=== PATIENT | male | born 1985 | race Caucasian/White ===

== ENCOUNTER 2018-06-21 21:24 | Outpatient (REF) | payer MEDICAID, SELFPAY ==
[2018-06-21 22:18] LABS: HCT 45.8 % (40.0-50.0); HGB 16.2 g/dL (13.5-17.5); Mean Corp. HGB Concentration 35.4 g/dL (32.0-36.0); Mean Corpuscular Hemoglobin 28.7 pg (27.0-33.0); Mean Corpuscular Volume 81.1 fL (80-95); Mean Platelet Volume 12.3 fL (8.0-11.0); Platelet Count 188 x1000/uL (130-400); RBC 5.65 m/cumm (4.50-6.00); RBC Distribution Width 13.3 % (11.8-14.1); White Blood Cell Count 5.85 k/cumm (4.4-10.8)
[2018-06-21 22:28] LABS: ALT 288 U/L (12-78); AST 94 U/L (15-37); Albumin 4.3 g/dL (3.4-5.0); Alkaline Phosphatase 81 U/L (46-116); BUN 16 mg/dL (7-18); Bilirubin, Total 0.5 mg/dL (0.2-1.0); CREATININE 0.86 mg/dL (0.70-1.30); Chloride 103 mmol/L (98-107); Glucose 86 mg/dL (70-100); Potassium 4.3 mmol/L (3.5-5.1); Sodium 140 mmol/L (136-145); Total Protein 7.7 g/dL (6.4-8.2)
[2018-06-24 09:48] LABS: Hepatitis B Surface Ag Negative (NEGAT)
[2018-06-24 09:51] LABS: HBs Antibody, Quant 473.2 mIU/mL; Hepatitis B Surface Ab Positive
[2018-06-24 10:02] LABS: Hepatitis C Ab w Rflx HCV PCR Reactive (NEGAT)
[2018-06-24 10:03] LABS: HIV-1/2 Ag & Ab Screen Negative (NEGAT)
== END 2018-06-21 21:44 ==
LOC: NCHCN 21:24
PROVIDERS: PCP Family Medicine; Visit Provider Internal Medicine
DX: C32.9 Malignant neoplasm of larynx, unspecified (principal); K21.9 Gastro-esophageal reflux disease without esophagitis; K52.9 Noninfective gastroenteritis and colitis, unspecified; Z87.898 Personal history of other specified conditions; Z11.59 Encounter for screening for other viral diseases; Z11.4 Encounter for screening for human immunodeficiency virus [HIV]
CPT/HCPCS: 80053; 85027; 86706; 86803; 87340; 87389; 87522

== ENCOUNTER 2018-07-15 01:03 | Outpatient (CLI) | payer SELFPAY ==
--- NOTE | 2018-07-15 08:00 | DI.US_ITS ---
SYMPTOMS/DIAGNOSIS: HEPATITIS C, B19.20, ABNORMAL LFTS ABDOMINAL ULTRASOUND: The visualized liver parenchyma is normal in appearance. No focal lesion identified. No biliary dilatation seen. No evidence of cholelithiasis. The pancreas is not well seen. Spleen is grossly unremarkable in appearance. Aorta and IVC are of normal diameter. Kidneys appear intact. CONCLUSION: Negative abdominal ultrasound.
== END 2018-07-15 01:23 ==
PROVIDERS: PCP Family Medicine; Visit Provider Internal Medicine
DX: B19.20 Unspecified viral hepatitis C without hepatic coma (principal); R74.8 Abnormal levels of other serum enzymes
CPT/HCPCS: 76700

== ENCOUNTER 2018-09-16 09:13 | Emergency (ER) | payer BC, SELFPAY ==
[2018-09-16 09:17] VITALS: BP 145/95; PULSE 79; RESP 20; TEMP 36.8; O2SAT 97
[2018-09-16 09:20] VITALS: RESP 24
--- NOTE | 2018-09-16 09:34 | W.ED.GENAD ---
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 He presents with worsening stridor for the last 3 days. No shortness of breath in the chest, just a sensation secondary to his upper respiratory symptoms. No chest pain, no chest heaviness or chest tightness. No history of PE. Exam demonstrates an otherwise well-appearing male that is in no acute respiratory distress. He does have minimal stridor on exam, which appears to all be referred in upper respiratory. Lung sounds otherwise clear. We will give Decadron, racemic epinephrine inhaled. We will get a CT scan of the neck to evaluate for further worsening of his tracheal space. We will refer to [facility] after results and reevaluation. 10:39 AM The patient has notable improvement of his symptoms with ischemic epinephrine. CT scan results have returned and suggests recurrent mass or scarring of the glottis up to 2 cm above the glottis with findings highly cyst suggestive of significant airway compromise. Currently the patient is maintaining an intact airway, he has his stridor, but feels much better after the racemic epinephrine. We did discuss with him the risks and benefits of intubation prior to transfer and the patient would like to hold off on intubation understanding the risks and benefits of the current procedure. Currently he appears stable and in no acute respiratory distress. I did contact [facility] and discussed the case with Dr. Sandy and Dr. Cody, they agree with the plan. Patient will be transferred for emergent ENT evaluation in the ED. I have extensively reviewed the treatment plan with the patient. I have addressed all patient concerns at this time. I have also discussed the plan with the admitting physician and they agree with the current assessment and plan and have agreed to assume responsibility for the patient. All parties demonstrate verbal understanding and agreement with our assessment and plan at this time. At time of transfer the patient was reassessed and continued to demonstrate current medical stability. No signs of acute respiratory distress requiring intubation, hemodynamic instability requiring pressor support, or rapidly declining mental status. The patient is stable for transport. NECK CT: CT examination of the cervical region was performed with intravenous infusion of 100 cc's of Omnipaque 350. The patient reportedly has a history of laryngeal carcinoma and scar revision procedure. Images obtained through the lung apices show no significant abnormality. Superior mediastinal structures appear intact. No bulky adenopathy identified in the cervical region. The orbital and temporal bone structures appear intact and paranasal sinuses and mastoid air cells are well aerated. There may be slight decrease in the width of the airway at the level of the palatine tonsils without evidence of a discrete mass. The epiglottis and aryepiglottic folds appear intact. There is marked narrowing of the airway at the level of the vocal cords and superior to the cords by about 2 cm. Previous surgical procedure noted at this site with presumed post surgical deformity of the laryngeal cartilages. Trachea appears of normal diameter. CONCLUSION: Findings suggesting recurrent mass and/or scarring at the glottis and up to approximately 2 cm. above the glottis with findings highly suggestive of significant airway compromise. Please correlate clinically. The findings were discussed with Dr Alston in the ER on the date of the examination. HPI General Date/Time Provider Initiated Documentation: 09/16/18 09:15. HPI Narrative: This is a 33-year-old male with a past medical history of laryngeal cancer, with surgical excision in August 2017, and tracheostomy at that time, and then revision for scar tissue in June 2018 at [facility]. He presents today with worsening shortness of breath over the last 3 days. He states that he has chronic stridor, but over the last 3 to 4 days he has noticed progressive worsening, he states that whenever he is in the shower he feels like he cannot breathe and is choking, and notably feels like he is having a hard time breathing in his throat when he wakes up in the morning. He denies any symptoms of shortness shortness of breath in the chest, chest pain, cough, hemoptysis, vomiting or diarrhea. He denies any fever or chills. He states that his next follow-up appointment at [facility] is on the of this month, he did call earlier today they had no specific recommendations. He denies any other complaints at this time. He denies any difficulty controlling secretions, syncope, history of blood clots. Patient also states that he has had symptoms identical to this in the past, especially when he had his worsening scarring requiring surgical management. Related Data Home Medications Medication Instructions Recorded Confirmed lansoprazole [Prevacid] 30 mg PO DAILY tab-cap 07/19/15 09/16/18 Allergies Allergy/AdvReac Type Severity Reaction Status Date / Time bupropion HCl Allergy Mild Hives Unverified 09/16/18 09:20 [From Wellbutrin] shellfish derived Allergy Mild Hives Unverified 09/16/18 09:20 General Stated Complaint: SOB REHAN: 3 Review of Systems Review of Systems All systems reviewed & are unremarkable except as noted in HPI and below PFSH Medical History ADHD Chronic pain Depression Dyspepsia GERD (gastroesophageal reflux disease) Heavy alcohol use History of depression PTSD (post-traumatic stress disorder) Polysubstance abuse Rectal bleeding Suicide attempt Surgical History R corneal transplant forearm fracture right knee surgery x3 Family History Mother Achalasia Father Essential hypertension Other Hypertension Social History Smoking/Tobacco Use Status: Current every day Alcohol Intake: current Alcohol Intake frequency: 0-2 drinks per day Drug use: Current Sobriety Substance use type: marijuana Do you feel safe at home: Yes Do you feel safe in your relationship?: Yes Exam Narrative Exam Narrative: 1.Const: Well-nourished, Well-developed, appearing stated age 2.Eyes: PERRL, no conjunctival injection, and symmetrical lids. 3.ENT: Atraumatic external nose and ears. Moist MM. Neck: Symmetric, trachea midline, No thyromegaly. Notable scarring and tracheal midline from previous tracheostomy. Notable inspiratory and expiratory stridor. Able to control secretions well. No signs of respiratory distress. No mass. Posterior oropharynx demonstrates no swelling, erythema or edema. No evidence of angioedema. 4.CVS: +S1/S2, No murmurs or gallops. Peripheral pulses 2+ and equal in all extremities. Brisk capillary refill in all extremities. 5.RESP: Unlabored respiratory effort. Referred upper respiratory stridor, notable over the tracheal scar. No referred abnormal lower lower breath sounds. No wheezes or rhonchi. 6.GI: Soft, Nontender/Nondistended, No hepatosplenomegaly. No guarding or rebound. 7.MSK: Normocephalic/Atraumatic, Extremities w/o deformity or ttp No cyanosis or clubbing, Normal movement of all extremities 8.Skin: Warm, Dry. No rashes or lesions. 9.Neuro: plan consultant II-XII grossly intact. Sensation grossly intact, no focal neurologic deficits. 10.Psych: (AAO) x3. Appropriate mood and affect Course Vital Signs Temperature 36.8 C 09/16/18 09:17 Pulse 79 09/16/18 09:17 Respiratory Rate 20 09/16/18 09:17 Blood Pressure 145/95 H 09/16/18 09:17 Pulse Oximetry 97 09/16/18 09:17 Temperature 36.8 C 09/16/18 09:17 Temperature Source Temporal Artery Scan 09/16/18 09:17 Pulse 79 09/16/18 09:17 Respiratory Rate 24 09/16/18 09:20 Respiratory Effort 09/16/18 09:20 Respiratory Pattern Tachypnea 09/16/18 09:20 Blood Pressure 145/95 H 09/16/18 09:17 Pulse Oximetry 97 09/16/18 09:17 Oxygen Delivery Method Room Air 09/16/18 09:17 Oxygen Flow Rate 0 09/16/18 09:17 Pain Level 0 09/16/18 09:17
[2018-09-16] MEDS: Normal Saline Flush 10 ML SYR IVP (09:50)
[2018-09-16] MEDS: Omnipaque 350 MG/ML 100 ML BTL IJ (09:50)
--- NOTE | 2018-09-16 09:51 | DI.CT_ITS ---
SYMPTOM/DIAGNOSIS: KNOWN TRACHEAL CA, DIFFICULTY BREATHING, STRIDORUS NECK CT: CT examination of the cervical region was performed with intravenous infusion of 100 cc's of Omnipaque 350. The patient reportedly has a history of laryngeal carcinoma and scar revision procedure. Images obtained through the lung apices show no significant abnormality. Superior mediastinal structures appear intact. No bulky adenopathy identified in the cervical region. The orbital and temporal bone structures appear intact and paranasal sinuses and mastoid air cells are well aerated. There may be slight decrease in the width of the airway at the level of the palatine tonsils without evidence of a discrete mass. The epiglottis and aryepiglottic folds appear intact. There is marked narrowing of the airway at the level of the vocal cords and superior to the cords by about 2 cm. Previous surgical procedure noted at this site with presumed post surgical deformity of the laryngeal cartilages. Trachea appears of normal diameter. CONCLUSION: Findings suggesting recurrent mass and/or scarring at the glottis and up to approximately 2 cm. above the glottis with findings highly suggestive of significant airway compromise. Please correlate clinically. The findings were discussed with Dr Alston in the ER on the date of the examination.
[2018-09-16 09:54] LABS: Abs Immature Grans 0.02 k/cumm (0.0-0.09); Absolute Basophil Count 0.02 k/cumm (0.0-0.2); Absolute Eosinophil Count 0.15 k/cumm (0.0-0.7); Absolute Monocyte Count 0.63 k/cumm (0.11-0.7); Absolute Neutrophil Count 3.65 k/cumm (1.2-6.7); Basophils % 0.3; Eosinophils % 2.5; HCT 47.8 % (40.0-50.0); HGB 16.8 g/dL (13.5-17.5); Immature Grans % 0.3; Lymphocytes % 26.4; Mean Corp. HGB Concentration 35.1 g/dL (32.0-36.0); Mean Corpuscular Volume 82.4 fL (80-95); Mean Platelet Volume 10.7 fL (8.0-11.0); Monocytes % 10.4; Neutrophils % 60.1; Platelet Count 176 x1000/uL (130-400); RBC Distribution Width 13.6 % (11.8-14.1); White Blood Cell Count 6.07 k/cumm (4.4-10.8)
[2018-09-16] MEDS: Dexamethasone 10 MG/ML VIAL IVP (09:58)
[2018-09-16] MEDS: EPINEPHrine for Inhalation 0.5 ML VIAL UPD (09:58)
[2018-09-16 10:04] LABS: ALT 213 U/L (12-78); AST 62 U/L (15-37); Alkaline Phosphatase 69 U/L (46-116); Anion Gap 9.3 mmol/L (3-11); BUN 13 mg/dL (7-18); Bilirubin, Total 0.6 mg/dL (0.2-1.0); CO2 26.7 mmol/L (21.0-32.0); CREATININE 0.83 mg/dL (0.70-1.30); Calcium 8.6 mg/dL (8.5-10.1); Chloride 104 mmol/L (98-107); Glucose 101 mg/dL (70-100); Potassium 4.1 mmol/L (3.5-5.1); Sodium 140 mmol/L (136-145); Total Protein 7.7 g/dL (6.4-8.2)
[2018-09-16 13:10] VITALS: BP 145/95; PULSE 84; RESP 20; TEMP 36.8; O2SAT 98
== END 2018-09-16 11:00 | disposition short-term general hospital (02) ==
PROVIDERS: Emergency Provider Student in an Organized Health Care Education/Training Program; PCP Family Medicine
DX: R19.06 Epigastric swelling, mass or lump (principal); R06.1 Stridor
CPT/HCPCS: 36415; 70491; 80053; 96374; 99285; 85025; 99284; J1100; J3490

== ENCOUNTER 2018-09-23 15:59 | Emergency (ER) | payer BC, SELFPAY ==
[2018-09-23] VITALS (13 sets, daily range): BP systolic 128–148; BP diastolic 71–93; PULSE 84–100; RESP 13–26; TEMP 36.4; O2SAT 94–97
--- NOTE | 2018-09-23 16:16 | DI.CT_ITS ---
SYMPTOM/DIAGNOSIS: LEFT SIDED PLEURITIC CHEST PAIN, RECENT SURGERY PE CTA: CT angiography was performed with multi slice acquisition and multi planar and 3D reconstruction. The study was conducted according to the usual protocol with intravenous administration of 86 cc Omnipaque 350. There is no evidence of pulmonary embolic disease. There is no pulmonary infiltrate. There is no pleural effusion. The heart is not enlarged . There is no evidence of a pericardial effusion. There is no evidence of an aortic aneurysm. SUMMARY: No evidence of pulmonary embolic disease.
--- NOTE | 2018-09-23 16:18 | W.ED.GENAD ---
Discharge Plan Disposition Patient Disposition: HOME Condition: Stable Discharge Details Chief Complaint: GenMedical Clinical Impression: Chest pain, pleuritic Primary Care Provider: Marsha Alfonso ED Provider: Chava Kendall Home Meds and New Rx's Prescriptions: No Action lansoprazole [Prevacid] 30 MG capsule,delayed release(DR/EC) 30 mg PO DAILY RF: 0 Discharge Instructions Instructions: Chest Pain (ED) Additional Instructions: Your blood work and cat scan of your chest did not show any concerning findings you can take 1000mg tylenol and 600mg ibuprofen every 6 hours for pain as needed if pain significantly worsens or you have new symptoms such as high fevers return to the emergency department follow up with your primary care provider within a week Medical Decision Making 33 yo male with hx of laryngeal ca tx'd with surgery in August and had repeat surgery last week to remove residual scar tissue per pt, comes in with pleuritic left sided chest pain for 3 days. Denies increased pain with exertion, radiation of pain, n/v or diaphoresis so doubt acs and heart score is 1 based on smoking hx, will obtain ecg and troponin and if negative feel he can be d/c'd with outpatient f/u with regards to acs w/u. His wells score is moderate given CA hx and also recent surgery, will obtain CTA to eval for PE and less likely pna and ptx (lungs clear on exam). no tearing back pain and normal vascular exam so doubt dissection. No recent trauma so doubt fx/contusion pt states now that he has had some left forearm swelling [place] [facility] [place]. on anterior mid forearm has 2x3 cm localized swelling without erythema, warmth or other evidence of cellulitis or infection, suspect local reaction or infiltrate from the iv, less likely dvt given localizes area and no diffuse arm swelling and normal pulses on exam. [place] [facility] [place] he had direct laryngoscopy and tissue debulking last week without problems, no other interventions at that time. labs and imaging unremarkable, remains stable. Given normal imagine and reassuring labs will d/c home,a dvised f/u with pcp, return precautions also given Differential Diagnosis pleuritis, ptx, pe Medical Records Medical records reviewed: Yes I reviewed the patient's medical records. Imaging Data Radiologic Study: Attestation: I personally reviewed and interpreted this imaging study as follows: Imaging: CT Scan Radiologist's impression: no acute findings Lab Data Lab results reviewed: Yes I reviewed the patient's lab results. ECG Data Attestation: I personally reviewed and interpreted this ECG (s) as follows: Prior ECG tracings: not available for review Interpretation: sinus rhythm, rate of 80, pr 160, no acute st t wave ischemic changes HPI General Mode of arrival: ambulatory. Date/Time Provider Initiated Documentation: 09/23/18 16:11. Limitations to Documentation: no limitations. Information obtained by: patient. History of Present Illness 33 year old M presents to the emergency department with the chief complaint of left sided pleuritic chest pain, described as moderate, Quality is described as stabbing and aching, and is localized to the chest and left. Patient started experiencing this hour(s) (3) and it has been constant. No relieving factors improve symptom(s), Other factors that worsen symptoms (deep breaths) . Related Data Home Medications Medication Instructions Recorded Confirmed lansoprazole [Prevacid] 30 mg PO DAILY tab-cap 07/19/15 09/23/18 Allergies Allergy/AdvReac Type Severity Reaction Status Date / Time bupropion HCl Allergy Mild Hives Unverified 09/23/18 16:44 [From Wellbutrin] shellfish derived Allergy Mild Hives Unverified 09/23/18 16:44 General Stated Complaint: GenMedical REHAN: 3 Review of Systems Review of Systems All systems reviewed & are unremarkable except as noted in HPI and below Constitutional Denies chills, Denies fever(s) and Denies weakness Gastrointestinal Denies abdominal pain, Denies nausea and Denies vomiting Integumentary/Breasts Denies rash Neurologic Denies weakness FOR[facility]LY [facility], [facility]1983 Surgical History R corneal transplant forearm fracture right knee surgery x3 Family History Mother Achalasia Father Essential hypertension Other Hypertension Social History Smoking/Tobacco Use Status: Current every day Tobacco Type: cigarettes Smoking cigarettes per day: 10 Alcohol Intake: current Alcohol Intake frequency: 0-2 drinks per day Drug use: Current Sobriety Substance use type: marijuana Do you feel safe at home: Yes Do you feel safe in your relationship?: Yes Additional Social history: no cigarettes x1 week Exam Const General: no acute distress Orientation: alert HENMT Head: normal to inspection Ears: external ears normal General nose exam: external nose normal Mouth: moist mucous membranes Eyes General: appearance normal, both eyes and all related structures Neck Neck: normal visual inspection Chest Chest: normal inspection of the chest Resp Effort & Inspection: normal respiratory effort and able to speak in complete sentences Cardio Rate: regular rate Skin General skin exam: no rashes or lesions noted Neuro General: alert and oriented x3 Extrem General: normal to inspection Psych Mental Status: mental status grossly normal Course Vital Signs Temperature 36.4 C L 09/23/18 16:04 Pulse 100 H 09/23/18 16:04 Respiratory Rate 16 09/23/18 16:04 Blood Pressure 148/93 H 09/23/18 16:04 Pulse Oximetry 96 09/23/18 16:04 Temperature 36.4 C L 09/23/18 16:04 Temperature Source Skin 09/23/18 16:04 Pulse 100 H 09/23/18 16:04 Respiratory Rate 16 09/23/18 16:04 Respiratory Effort 09/23/18 16:09 Blood Pressure 148/93 H 09/23/18 16:04 Blood Pressure Position Sitting 09/23/18 16:04 Pulse Oximetry 96 09/23/18 16:04 Oxygen Delivery Method Room Air 09/23/18 16:04 Oxygen Flow Rate 0 09/23/18 16:04 Pain Level 4 09/23/18 16:04
[2018-09-23 16:53] LABS: Abs Immature Grans 0.08 k/cumm (0.0-0.09); Absolute Basophil Count 0.01 k/cumm (0.0-0.2); Absolute Eosinophil Count 0.19 k/cumm (0.0-0.7); Absolute Lymphocyte Count 2.31 k/cumm (1.2-3.4); Absolute Monocyte Count 1.09 k/cumm (0.11-0.7); Absolute Neutrophil Count 5.53 k/cumm (1.2-6.7); Basophils % 0.1; Eosinophils % 2.1; HCT 44.3 % (40.0-50.0); HGB 15.7 g/dL (13.5-17.5); Immature Grans % 0.9; Lymphocytes % 25.1; Mean Corp. HGB Concentration 35.4 g/dL (32.0-36.0); Mean Corpuscular Hemoglobin 28.9 pg (27.0-33.0); Mean Corpuscular Volume 81.4 fL (80-95); Mean Platelet Volume 10.6 fL (8.0-11.0); Monocytes % 11.8; Platelet Count 194 x1000/uL (130-400); RBC 5.44 m/cumm (4.50-6.00); RBC Distribution Width 13.4 % (11.8-14.1); White Blood Cell Count 9.21 k/cumm (4.4-10.8)
[2018-09-23] MEDS: Omnipaque 350 MG/ML 100 ML BTL IJ (17:11)
[2018-09-23 17:17] LABS: INR 0.9 (0.9-1.1); PTT Activated 23.8 sec (21.0-31.4); Prothrombin Time 8.9 sec (9.3-11.0)
[2018-09-23 17:23] LABS: ALT 134 U/L (12-78); AST 36 U/L (15-37); Albumin 3.7 g/dL (3.4-5.0); Alkaline Phosphatase 80 U/L (46-116); Anion Gap 10.6 mmol/L (3-11); BUN 22 mg/dL (7-18); Bilirubin, Total 0.4 mg/dL (0.2-1.0); CO2 26.4 mmol/L (21.0-32.0); CREATININE 0.87 mg/dL (0.70-1.30); Calcium 8.7 mg/dL (8.5-10.1); Chloride 103 mmol/L (98-107); Glucose 103 mg/dL (70-100); Potassium 3.9 mmol/L (3.5-5.1); Sodium 140 mmol/L (136-145); Total Protein 7.3 g/dL (6.4-8.2)
[2018-09-23 17:24] LABS: Troponin I < 0.02 ng/mL (0.00-0.06)
--- NOTE | 2018-09-23 17:37 | DI.VRAD_ITS ---
EXAM: CT Angiography Chest With Contrast EXAM DATE/TIME: 09/23/2018 4:17 PM CLINICAL HISTORY: 33 years old, male; Pleuordynia; Patient HX: L sided pleuritic pain, recent surgery TECHNIQUE: Imaging protocol: Axial computed tomographic angiography images of the chest with intravenous contrast using CT angiography protocol. Coronal and sagittal reformatted images were created and reviewed. 3D rendering: MIP reconstructed images were created and reviewed. COMPARISON: No relevant prior studies available. FINDINGS: Pulmonary arteries: Normal. No pulmonary emboli. Aorta: Unremarkable. No aortic aneurysm. No aortic dissection. Lungs: Unremarkable. No consolidation. No masses. Pleural space: Unremarkable. No pneumothorax. No pleural effusion. Heart: Unremarkable. No cardiomegaly. No pericardial effusion. Lymph nodes: Unremarkable. No enlarged lymph nodes. Bones/joints: Unremarkable. No acute fracture. Soft tissues: Unremarkable. IMPRESSION: No acute findings. Dictated and Authenticated by: Nunu Weller MD. Ordering:IZA Larsen MD
== END 2018-09-23 18:13 | disposition home or self-care (01) ==
PROVIDERS: Emergency Provider Emergency Medicine; PCP Family Medicine
DX: R07.81 Pleurodynia (principal); R22.32 Localized swelling, mass and lump, left upper limb
CPT/HCPCS: 36415; 71275; 80053; 93005; 99285; 83735; 84484; 85025; 85610; 85730; 93010; J3490

== ENCOUNTER 2019-07-31 09:43 | Outpatient (REF) | payer MEDICAID, SELFPAY ==
[2019-07-31 20:51] LABS: ALT 190 U/L (16-63); AST 65 U/L (15-37); Albumin 4.3 g/dL (3.4-5.0); Alkaline Phosphatase 62 U/L (46-116); Anion Gap 8.1 mmol/L (3-11); BUN 12 mg/dL (7-18); Bilirubin, Total 0.6 mg/dL (0.2-1.0); CO2 29.9 mmol/L (21.0-32.0); CREATININE 0.99 mg/dL (0.70-1.30); Calcium 9.3 mg/dL (8.5-10.1); Chloride 104 mmol/L (98-107); Glucose 96 mg/dL (74-106); Potassium 4.4 mmol/L (3.5-5.1); Sodium 142 mmol/L (136-145); Total Protein 7.6 g/dL (6.4-8.2)
[2019-07-31 21:03] LABS: HCT 51.1 % (40.0-50.0); HGB 17.7 g/dL (13.5-17.5); Mean Corp. HGB Concentration 34.6 g/dL (32.0-36.0); Mean Corpuscular Hemoglobin 28.6 pg (27.0-33.0); Mean Corpuscular Volume 82.7 fL (80-95); Mean Platelet Volume 11.6 fL (8.0-11.0); Platelet Count 169 x1000/uL (130-400); RBC 6.18 m/cumm (4.50-6.00); RBC Distribution Width 13.3 % (11.8-14.1); White Blood Cell Count 5.49 k/cumm (4.4-10.8)
[2019-08-04 11:03] LABS: HBs Antibody, Quant 362.8 mIU/mL (See Note); Hepatitis B Surface Ab Positive (See Note)
[2019-08-04 11:04] LABS: ALT 169 U/L (7-55); ActiTest Grade A3; ActiTest Interpretation severe activity; ActiTest Score 0.81; Alpha-2-Macroglobulin 253 mg/dL (100 - 280); Apoliprotein A1 155 mg/dL (>=120); Bilirubin, Total 0.5 mg/dL (<=1.2); FibroTest Interpretation moderate fibrosis; FibroTest Score 0.51; FibroTest Stage F2; GGT 148 U/L (8 - 61); Haptoglobin 42 mg/dL (30 - 200)
[2019-08-04 11:08] LABS: Hepatitis B Surface Ag Negative (Negative)
[2019-08-04 11:54] LABS: HIV-1/2 Ag & Ab Screen Negative (Negative)
[2019-08-04 12:16] LABS: Hep B Core Antibody Negative (Negative)
[2019-08-04 14:41] LABS: HCV RNA Qualitative Detected (Undetected)
[2019-08-04 22:59] LABS: HCV Genotype 1b (Undetected)
== END 2019-07-31 10:03 ==
LOC: NCHCN 09:43
PROVIDERS: PCP Family Medicine; Visit Provider Family Medicine
DX: B19.20 Unspecified viral hepatitis C without hepatic coma (principal); Z11.4 Encounter for screening for human immunodeficiency virus [HIV]; Z01.84 Encounter for antibody response examination
CPT/HCPCS: 80053; 81596; 85027; 86704; 86706; 87340; 87389; 87522; 87521